=== PATIENT | male | born 1960 | race African-American/Black ===

== ENCOUNTER 2018-05-29 09:42 | Day surgery (SDC) | payer BC ==
[2018-05-06 12:45] VITALS: BMI 31.4
[2018-05-29] MEDS ORDERED: LIDOCAINE HCL/PF 2% SDV 5ML VIAL ONE (09:55)
[2018-05-29] MEDS ORDERED: PROPOFOL 20 ML ONE ×2 (09:55)
[2018-05-29 10:51] VITALS: TEMP 98.1
[2018-05-29 11:25] VITALS: BP 129/88; PULSE 79
--- NOTE | 2018-05-31 16:13 | PATH ---
Surgical Pathology Report Patient Name: LILY MCHUGH [facility]. Rec. #: [id number] /Age/Gender: 1960 (Age: 57) / M Account: [id number] Location: [facility] Taken: 05/29/2018 Received: 05/29/2018 Reported: 05/31/2018 Physicians: Tari Read M.D. Specimen(s) Received A: BIOPSY SECOND PORTION OF DUODENUM B: BX ANTRUM C: BX GE JUNCTION Clinical History Abdominal pain Postoperative diagnosis: Gastritis Final Diagnosis A. SECOND PORTION OF DUODENUM, BIOPSY: DUODENAL MUCOSA WITH NO PATHOLOGIC FINDINGS. B. ANTRUM, BIOPSY: SEVERE CHRONIC ACTIVE GASTRITIS. IMMUNOSTAIN SHOWS NUMEROUS H. PYLORI ORGANISMS. C. GE JUNCTION, BIOPSY: COLUMNAR (GASTRIC CARDIA-TYPE) MUCOSA SHOWING MODERATE CHRONIC INFLAMMATION. NO ESOPHAGEAL (SQUAMOUS) MUCOSA IS IDENTIFIED. NEGATIVE FOR INTESTINAL METAPLASIA. Electronically Signed Libra Baum M.D. Gross Description A. Received in formalin, labeled "biopsy second portion of duodenum" is a bell, irregular portion of soft tissue measuring 0.4 cm. in greatest dimension. The specimen is submitted in toto in one cassette. B. Received in formalin, labeled "biopsy antrum" are 2 bell, irregular portions of soft tissue measuring 0.4 and 0.6 cm. in greatest dimension. The specimens are submitted in toto in one cassette. C. Received in formalin, labeled "biopsy GE junction" is a bell, irregular portion of soft tissue measuring 0.2 cm. in greatest dimension. The specimen is submitted in toto in one cassette. 05/30/2018 [facility]05/30/2018
== END 2018-05-29 11:30 | disposition home or self-care (01) ==
LOC: MERGE 09:42 → FASU-ENDO 09:42
PROVIDERS: ATTEND Internal Medicine Gastroenterology
PROC: 0DB68ZX Excision of Stomach, Via Natural or Artificial Opening Endoscopic, Diagnostic (ICD-10-PCS; 2018-05-29)
PROC: 0DB48ZX Excision of Esophagogastric Junction, Via Natural or Artificial Opening Endoscopic, Diagnostic (ICD-10-PCS; 2018-05-29)
PROC: 0DB98ZX Excision of Duodenum, Via Natural or Artificial Opening Endoscopic, Diagnostic (ICD-10-PCS; principal; 2018-05-29 10:30)
DX: K29.50 Unspecified chronic gastritis without bleeding (principal); B96.81 Helicobacter pylori [H. pylori] as the cause of diseases classified elsewhere; K20.9 Esophagitis, unspecified; I12.9 Hypertensive chronic kidney disease with stage 1 through stage 4 chronic kidney disease, or unspecified chronic kidney disease; N18.3 Chronic kidney disease, stage 3 (moderate); E78.00 Pure hypercholesterolemia, unspecified
CPT/HCPCS: 88305-TC; 88342-TC

== ENCOUNTER 2018-07-31 10:05 | Day surgery (SDC) | payer BC ==
[2018-07-17 16:31] VITALS: BMI 31.6
[2018-07-31 10:30] VITALS: TEMP 98.7
[2018-07-31] MEDS ORDERED: PROPOFOL 20 ML ONE ×2 (11:03)
[2018-07-31] MEDS ORDERED: LIDOCAINE HCL/PF 2% SDV 5ML VIAL ONE (11:03)
[2018-07-31 12:14] VITALS: BP 128/81; PULSE 77
--- NOTE | 2018-08-02 10:53 | PATH ---
Surgical Pathology Report Patient Name: LILY MCHUGH [facility]. Rec. #: [id number] /Age/Gender: 1960 (Age: 57) / M Account: [id number] Location: [facility] Taken: 07/31/2018 Received: 07/31/2018 Reported: 08/02/2018 Physicians: Tari Read M.D. Specimen(s) Received SIGMOID POLYP Clinical History Screening Postoperative diagnosis: Hemorrhoids Final Diagnosis SIGMOID, POLYP, BIOPSY: HYPERPLASTIC POLYP. Electronically Signed Tari Alanis M.D. Gross Description Received in formalin, labeled "sigmoid polyp" is a bell, irregular portion of soft tissue measuring 0.3 cm. in greatest dimension. The specimen is submitted in toto in one cassette. 08/01/201808/01/2018
== END 2018-07-31 12:15 | disposition home or self-care (01) ==
LOC: FASU-ENDO 10:05
PROVIDERS: ATTEND Internal Medicine Gastroenterology
PROC: 0DBN8ZX Excision of Sigmoid Colon, Via Natural or Artificial Opening Endoscopic, Diagnostic (ICD-10-PCS; principal; 2018-07-31 11:12)
DX: Z12.11 Encounter for screening for malignant neoplasm of colon (principal); K63.5 Polyp of colon; K64.1 Second degree hemorrhoids
CPT/HCPCS: 88305-TC

== ENCOUNTER → 2018-09-18 | Day surgery (SDC) | payer BC ==
[2018-09-13 15:14] VITALS: BMI 31.6
[~2018-09-18] MED LIST: PROPOFOL 20 ML ONE
[2018-09-18 10:38] VITALS: BP 140/90; PULSE 58; TEMP 98.2
== END | disposition home or self-care (01) ==
LOC: FASU-ENDO 10:18
PROVIDERS: ATTEND Internal Medicine Gastroenterology
PROC: 0DJD8ZZ Inspection of Lower Intestinal Tract, Via Natural or Artificial Opening Endoscopic (ICD-10-PCS; principal; 2018-09-18 12:16)
DX: Z12.11 Encounter for screening for malignant neoplasm of colon (principal); K64.2 Third degree hemorrhoids; K57.30 Diverticulosis of large intestine without perforation or abscess without bleeding

== ENCOUNTER 2018-11-20 09:18 | Day surgery (SDC) | payer BC ==
[2018-11-14 15:02] VITALS: BMI 31.3
[2018-11-20] MEDS ORDERED: PROPOFOL 20 ML ONE (09:55)
[2018-11-20] MEDS ORDERED: LIDOCAINE HCL/PF 2% SDV 5ML VIAL ONE (09:55)
[2018-11-20 11:00] VITALS: TEMP 98
[2018-11-20 11:35] VITALS: BP 114/82; PULSE 56
--- NOTE | 2018-11-22 16:44 | PATH ---
Surgical Pathology Report Patient Name: LILY MCHUGH [facility]. Rec. #: [id number] /Age/Gender: 1960 (Age: 58) / M Account: [id number] Location: [facility] Taken: 11/20/2018 Received: 11/20/2018 Reported: 11/22/2018 Physicians: Tari Read M.D. Specimen(s) Received RECTUM POLYP Clinical History Screening Postoperative diagnosis: Polyp, hemorrhoids Final Diagnosis RECTUM, POLYP, BIOPSY: HYPERPLASTIC POLYP. Electronically Signed Tari Alanis M.D. Gross Description Received in formalin, labeled "biopsy polyp rectum" is a bell, irregular portion of soft tissue measuring 0.3 cm. in greatest dimension. The specimen is submitted in toto in one cassette. /11/21/201811/21/2018
== END 2018-11-20 11:30 | disposition home or self-care (01) ==
LOC: FASU-ENDO 09:18
PROVIDERS: ATTEND Internal Medicine Gastroenterology
PROC: 0DBP8ZX Excision of Rectum, Via Natural or Artificial Opening Endoscopic, Diagnostic (ICD-10-PCS; principal; 2018-11-20 10:21)
DX: Z12.11 Encounter for screening for malignant neoplasm of colon (principal); K62.1 Rectal polyp; K64.1 Second degree hemorrhoids
CPT/HCPCS: 88305-TC

== ENCOUNTER 2019-12-17 09:03 | Day surgery (SDC) | payer BC ==
[2019-12-10 09:14] VITALS: BMI 37.3
[2019-12-17] MEDS ORDERED: LIDOCAINE HCL/PF 2% SDV 5ML VIAL ONE (09:33)
[2019-12-17] MEDS ORDERED: PROPOFOL 20 ML ONE ×3 (09:33)
[2019-12-17 10:52] VITALS: TEMP 98.9
[2019-12-17 11:22] VITALS: BP 139/79; PULSE 74
--- NOTE | 2019-12-19 18:16 | PATH ---
Surgical Pathology Report Patient Name: LILY MCHUGH [facility]. Rec. #: [id number] /Age/Gender: 1960 (Age: 59) / M Account: [id number] Location: [facility] Taken: 12/17/2019 Received: 12/17/2019 Reported: 12/19/2019 Physicians: Tari Read M.D. Specimen(s) Received A: SECOND PORTION DUODENUM B: GASTRIC ANTRUM C: GE JUNCTION Clinical History GERD, abdominal pain Postoperative diagnosis: Gastritis, hiatal hernia Final Diagnosis A. SECOND PORTION DUODENUM, BIOPSY: DUODENAL MUCOSA WITH NO SIGNIFICANT PATHOLOGIC CHANGE. NO HISTOLOGIC EVIDENCE OF INTRAEPITHELIAL LYMPHOCYTOSIS. B. GASTRIC ANTRUM, BIOPSY: GASTRIC MUCOSA WITH FOCAL ACTIVE CHRONIC GASTRITIS. IMMUNOSTAIN FOR H. PYLORI IS POSITIVE. NEGATIVE FOR INTESTINAL METAPLASIA. C. GE JUNCTION, BIOPSY: GASTROESOPHAGEAL JUNCTIONAL MUCOSA WITH REFLUX ESOPHAGITIS, ACUTE AND CHRONIC FORMATION. NEGATIVE FOR INTESTINAL METAPLASIA. Electronically Signed Nnamdi Klein M.D. Gross Description A. Received in formalin, labeled "biopsy second portion duodenum" is a bell, irregular portion of soft tissue measuring 0.4 cm. in greatest dimension. The specimen is submitted in toto in one cassette. B. Received in formalin, labeled "biopsy gastric antrum" are 2 bell, irregular portions of soft tissue measuring 0.1 and 0.4 cm. in greatest dimension. The specimens are submitted in toto in one cassette. C. Received in formalin, labeled "biopsy GE junction" is a bell, irregular portion of soft tissue measuring 0.2 cm. in greatest dimension. The specimen is submitted in toto in one cassette. /12/18/2019 [facility]/12/18/2019
== END 2019-12-17 11:20 | disposition home or self-care (01) ==
LOC: FASU-ENDO 09:03
PROVIDERS: ATTEND Internal Medicine Gastroenterology
PROC: 0DB68ZX Excision of Stomach, Via Natural or Artificial Opening Endoscopic, Diagnostic (ICD-10-PCS; 2019-12-17)
PROC: 0DB48ZX Excision of Esophagogastric Junction, Via Natural or Artificial Opening Endoscopic, Diagnostic (ICD-10-PCS; 2019-12-17)
PROC: 0DB98ZX Excision of Duodenum, Via Natural or Artificial Opening Endoscopic, Diagnostic (ICD-10-PCS; principal; 2019-12-17 10:33)
DX: R12 Heartburn (principal); K44.9 Diaphragmatic hernia without obstruction or gangrene
CPT/HCPCS: 88305-TC; 88342-TC

== ENCOUNTER 2021-07-11 05:50 | Emergency (ER) | payer BC ==
[2021-07-11] MEDS ORDERED: ONDANSETRON 4 MG/2 ML VIAL ONE (06:12)
[2021-07-11] MEDS ORDERED: LACTATED RINGERS SOLUTION 1000 ML INFUS.BAG IV ONE (06:13)
[2021-07-11] MEDS ORDERED: ONDANSETRON 4 MG/2 ML VIAL IVPUSH ONE (06:13)
[2021-07-11 06:25] VITALS: BMI 30.3
[2021-07-11 06:41] LABS: HEMATOCRIT 42.7 % (35.4-49); MCH 29.8 pg (25.7-33.7); MCHC 32.8 g/dl (32.0-35.9); MEAN CELL VOLUME 90.7 fl (80-96); MEAN PLT VOLUME 8.8 fl (7.5-11.1); PLATELET COUNT 208 10^3/uL (134-434); RBC 4.71 M/mm3 (4.00-5.60); RDW 14.7 % (11.9-15.9); WHITE BLOOD COUNT 13.6 K/mm3 (4.0-10.0)
[2021-07-11 06:54] LABS: CALCIUM 9.6 mg/dL (8.5-10.1)
[2021-07-11 06:55] LABS: ALBUMIN 3.8 g/dl (3.4-5.0); BLOOD UREA NITROGEN 17.8 mg/dL (7-18)
[2021-07-11 06:56] LABS: INR 1.02 (0.83-1.09); PROTHROMBIN TIME (PATIENT) 11.7 SEC (9.7-13.0)
[2021-07-11 06:58] LABS: CREATININE 1.5 mg/dL (0.55-1.3)
[2021-07-11 07:00] LABS: BILIRUBIN,TOTAL 0.3 mg/dL (0.2-1); TOT PROT 7.3 g/dl (6.4-8.2)
[2021-07-11 08:52] VITALS: BP 147/95; PULSE 88; TEMP 98.6
[2021-07-11 09:41] LABS: ANISOCYTOSIS 0; MACROCYTOSIS 1+; PLATELET ESTIMATE NORMAL
== END 2021-07-11 08:51 | disposition home or self-care (01) ==
LOC: JER 05:50
PROC: 3E033GC Introduction of Other Therapeutic Substance into Peripheral Vein, Percutaneous Approach (ICD-10-PCS; principal; 2021-07-11)
DX: R55 Syncope and collapse (principal); R11.10 Vomiting, unspecified
CPT/HCPCS: 36415; 71045-TC-FY; 80053; 83690; 84484; 85025; 85610; 85730; 86850; 86900; 86901; 93005; 93010; 99285-25; C9803; U0003; U0005

== ENCOUNTER 2022-11-22 10:11 | Day surgery (SDC) | payer BC ==
[2022-11-15 16:29] VITALS: BMI 31.6
[2022-11-22] MEDS ORDERED: PROPOFOL 40 ML ONE (10:49)
[2022-11-22 13:30] VITALS: RESP 17; TEMP 97
[2022-11-22 13:54] VITALS: BP 106/61; PULSE 64
== END 2022-11-22 12:20 | disposition home or self-care (01) ==
LOC: FASU-ENDO 10:11
PROVIDERS: ATTEND Internal Medicine Gastroenterology
PROC: 0DB68ZX Excision of Stomach, Via Natural or Artificial Opening Endoscopic, Diagnostic (ICD-10-PCS; 2022-11-22)
PROC: 0DB48ZX Excision of Esophagogastric Junction, Via Natural or Artificial Opening Endoscopic, Diagnostic (ICD-10-PCS; 2022-11-22)
PROC: 0DB98ZX Excision of Duodenum, Via Natural or Artificial Opening Endoscopic, Diagnostic (ICD-10-PCS; principal; 2022-11-22 11:23)
DX: K29.50 Unspecified chronic gastritis without bleeding (principal); K21.00 Gastro-esophageal reflux disease with esophagitis, without bleeding; R10.13 Epigastric pain
CPT/HCPCS: 88305-TC; 88342-TC